=== PATIENT | male | born 1980 | race Caucasian/White ===

== ENCOUNTER 2024-09-27 21:04 | Emergency (ER) | payer SELFPAY ==
[~2024-09-27] VITALS: Ht 165.1 cm; Wt 65.0 kg
[2024-09-27 21:20] VITALS: BP 125/79; PULSE 101; RESP 16; TEMP 98.5; O2SAT 99
[2024-09-27] MEDS: IBUPROFEN 600MG TABLET PO ONE (22:17)
[2024-09-27] MEDS: ACETAMINOPHEN 325MG TABLET PO ONE (22:17)
== END 2024-09-27 22:22 | disposition left against medical advice (07) ==
LOC: ER 21:13
DX: R05.9 Cough, unspecified (principal); R06.02 Shortness of breath; R07.89 Other chest pain
CPT/HCPCS: 99283